=== PATIENT | female | born 1980 ===

== ENCOUNTER 2022-01-02 06:59 | Day surgery (SDC) | payer OTHER ==
[~2022-01-02] VITALS: Ht 160 cm; Wt 65.8 kg
== END 2022-01-02 14:25 | disposition home or self-care (01) ==
LOC: CIR.AMB 06:59
PROVIDERS: ATTEND Orthopaedic Surgery
DX: M17.11 Unilateral primary osteoarthritis, right knee (principal); Z20.822 Contact with and (suspected) exposure to COVID-19; Z91.048 Other nonmedicinal substance allergy status; M67.931 Unspecified disorder of synovium and tendon, right forearm; M24.821 Other specific joint derangements of right elbow, not elsewhere classified